=== PATIENT | female | born 1985 | race Caucasian/White ===

== ENCOUNTER 2023-07-10 17:41 | Outpatient (REF) | payer MEDICAID, SELFPAY ==
[2023-07-10 18:12] LABS: Appearance Urine Clear; Color Urine Yellow; Glucose Urine UA Negative (Negative); Leukocyte Esterase Urine Trace (Negative); Nitrite Urine Negative (Negative); Specific Gravity - Urine 1.015 (1.005-1.025); UMIC TRIGGER UACC YES; Urine Blood Negative (Negative); Urine Ketones Negative (Negative); Urine Protein Negative (Neg-Trace)
[2023-07-10 18:27] LABS: Bacteria Urine None Seen (None Seen); Hyaline Casts Urine 0-2 /LPF (0-2); RBC Urine 0-2 /HPF (0-2); WBC Urine 0-5 /HPF (0-5)
[2023-07-11 12:54] LABS: BV Int Neg Control Negative (Negative); BV Int Pos Control Positive (Positive)
== END 2023-07-10 17:42 | disposition home or self-care (01) ==
LOC: HO.HHCLNP 17:41
PROVIDERS: Visit Provider Emergency Medicine
DX: R30.0 Dysuria (principal)
CPT/HCPCS: 81001; 87480; 87491; 87510; 87591; 87660

== ENCOUNTER 2023-11-07 13:36 | Emergency (ER) | payer MEDICAID, SELFPAY ==
--- NOTE | ~2023-11-07 | CT_ITS ---
EXAMINATION: CT ANGIOGRAM OF THE CHEST WITH AND WITHOUT CONTRAST (CT PULMONARY ANGIOGRAM FOR PE) CLINICAL INFORMATION: Chest pain elevated d-dimer(338) COMPARISON: Chest radiograph done earlier the same day. TECHNIQUE: Prior to contrast administration, noncontrast localization images were obtained. Subsequently, multidetector volumetric imaging was performed from the thoracic inlet to below the diaphragms following the administration of 65 mL Omnipaque 350 intravenous contrast. No contrast reaction reported Sagittal, coronal, and MIP oblique sagittal reformatted images were obtained on the CT workstation, uploaded to PACS, and reviewed. This CT examination was performed using dose optimization techniques as appropriate, variously including the following: *Automated exposure control *Adjustment of mA and/or kV according to patient size (this includes techniques or standardized protocols for targeted exams where dose is matched to indication/reason for exam; i.e. extremities or head) *Use of iterative reconstruction technique Total exam dose-length product 302 mGy-cm FINDINGS: QUALITY OF STUDY/CONTRAST BOLUS: Satisfactory. PULMONARY ARTERIES: No pulmonary emboli. THORACIC AORTA: No aneurysm. LUNG: No focal consolidation, nodules or masses. PLEURA: No pleural effusion or pneumothorax. MEDIASTINUM: Normal heart size. No pericardial effusion. No hilar or mediastinal lymphadenopathy. No evidence of septal bowing or right heart strain. CORONARY ARTERY CALCIFICATION: None visualized on this study. CHEST WALL/AXILLA: No axillary or internal mammary lymphadenopathy. OSSEOUS STRUCTURES: No acute or suspicious osseous abnormality. 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 UPPER ABDOMEN: Unremarkable. No reflux of contrast into the hepatic veins to suggest elevated right heart pressures. CT/CT angio chest PE protocol IMPRESSION: 1. No CT angiographic evidence of acute pulmonary embolism. 2. No pulmonary nodule, mass, or airspace consolidation. VTE: negative.
--- NOTE | ~2023-11-07 | XR_ITS ---
EXAMINATION: XR CHEST 2 VIEW CLINICAL INFORMATION: Chest pain COMPARISON: 05/11/2017 TECHNIQUE: PA and lateral views of the chest obtained. FINDINGS: The lungs are clear. There are no pleural effusions. The cardiomediastinal silhouette is normal. XR/XR chest 2V IMPRESSION: No acute cardiopulmonary disease.
--- NOTE | 2023-11-07 13:39 | ECG_ITS ---
Test Reason : CHEST PAIN Blood Pressure : / mmHG Vent. Rate : 078 BPM Atrial Rate : 078 BPM P-R Int : 130 ms QRS Dur : 072 ms QT Int : 378 ms P-R-T Axes : 018 012 027 degrees QTc Int : 430 ms Normal sinus rhythm with sinus arrhythmia Normal ECG No previous ECGs available Referred By: Jacy Jordan Electronically Signed By:ELVER ASCENCIO MD
[2023-11-07 14:08] VITALS: BP 152/104; PULSE 69; RESP 19; TEMP 36.6; O2SAT 98; BMI 26.9
--- NOTE | 2023-11-07 14:08 | ED_ITS ---
HPI - Chest Pain General Chief Complaint: Chest Pain Stated Complaint: Chest Pain Since Last Night Anxiety Time Seen by Provider: 11/07/23 17:19 Source: patient and old records reviewed Mode of arrival: ambulatory Limitations: no limitations History of Present Illness ED Provider: YANET FLORENCE narrative: 37 yo female with PMH of thrombophilia, reactive airway disease, prior hep C and IVDA who presents with c/o multiple issues 1. L upper chest pain on and off x 1 week with hard firm area felt in upper left chest - no trauma, cough or fevers not on OCPs, no travel, dyspnea/procedures 2. yellow diarrhea started after going to [employer] - no abx use 3. L eye stye wants eye drops 4. thinks she has BV again wants treatment 5. R foot has white itchy rash noted but no redness, swelling after cutting her foot on [place] a week ago she denies IVDA she is worried she has in infection she wants eye drops and antibiotic for her body thinks she has a fungal rash she wants HIV test as well. MD complaint: chest pain Onset (ago): week(s) (1) Timing of current episode: episodic Prior episodes: Yes Onset: during rest Pain location: left chest Pain radiation: none Severity: moderate Quality: aching Relieving factors: nothing Exacerbating factors: palpation Context: recent illness Associated symptoms: other (diarrhea, rash, stye in eye, foot rash, BV) Treatment prior to arrival: none Related Data Home Medications ?Medication ?Instructions ?Recorded ?Confirmed albuterol sulfate 2.5 mg/3 mL 2.5 mg inhalation Q4H 07/31/21 07/31/21 (0.083 %) solution for nebulization albuterol sulfate 90 mcg/actuation 2 puff inhalation Q4-6H PRN 07/31/21 07/31/21 aerosol inhaler (ProAir HFA) Shortness Of Breath Or Wheezing docusate sodium 250 mg capsule 250 mg PO DAILY 07/31/21 07/31/21 ibuprofen 400 mg tablet 400 mg PO Q6H PRN Pain 07/31/21 07/31/21 lamotrigine 200 mg tablet 200 mg PO DAILY 07/31/21 07/31/21 lorazepam 1 mg tablet 1 mg PO BID PRN Anxiety 07/31/21 07/31/21 metronidazole 500 mg tablet 500 mg PO Q12H 07/31/21 07/31/21 prazosin 2 mg capsule 2 mg PO BEDTIME 07/31/21 07/31/21 valacyclovir 500 mg tablet 1,000 mg PO DAILY 07/31/21 07/31/21 (Valtrex) Previous Rx's ?Medication ?Instructions ?Recorded clindamycin phosphate 2 % vaginal 1 appful vaginal BEDTIME #40 grams 11/07/23 cream clotrimazole-betamethasone 1 1 appl topical DAILY 7 days #15 11/07/23 %-0.05 % topical cream grams erythromycin 5 mg/gram (0.5 %) eye 0.5 inch ophthalmic (eye) BID 5 11/07/23 ointment days #3.5 grams metronidazole 500 mg tablet 500 mg PO BID 7 days #14 tabs 11/07/23 Allergies Allergy/AdvReac Type Severity Reaction Status Date / Time amoxicillin [From AMOXIL] Allergy Unknown RASH Verified 11/07/23 14:11 levofloxacin [From LEVAQUIN] Allergy Unknown RASH/ITCHY Verified 11/07/23 14:11 THROAT metronidazole [From FLAGYL] Allergy Unknown N/V Verified 11/07/23 14:11 DIZZINESS H/A paroxetine Allergy Unknown Verified 11/07/23 14:11 Review of Systems 2 Review of Systems: Constitutional : No Fever, No Chills, No Fatigue ENT/Mouth : No sore throat, No Rhinorrhea, pos eye lesion Eyes: No Eye Pain, No Swelling, No Redness Cardiovascular : pos Chest Pain, No SOB, No Dyspnea on Exertion Respiratory : No Cough, No Sputum Gastrointestinal : No Nausea, No Vomiting, pos Diarrhea, No abdominal Pain Genitourinary : No Dysuria, No Urinary Frequency, No Hematuria, Musculoskeletal : No joint pain, No Myalgias, No Joint Swelling Skin : No Skin Lesions, pos rash Neuro : No Weakness, No Numbness, No Dizziness, no Headache Psych : No Anxiety/Panic, No Depression All other systems reviewed and are negative PMFSH Past Medical History Attestation statement: The following information was validated with the patient. Source: old records reviewed Medical History Hx of intravenous drug use in remission Herpes simplex virus infection Depression with anxiety Allergic sinusitis Morbid obesity Chronic hepatitis C without hepatic coma Thrombophilia IV drug abuse Hand edema Rash of face Surgical History Hx laparoscopic cholecystectomy Family History Family History (Updated 07/31/21 @ 15:05 by Christie Garcia CMA) Maternal Aunt Lupus Paternal Grandmother Ovarian cancer Social History Social History Household Members: Children Housing: House Are you a primary adult caregiver to a significant other at home: No Do you presently have visiting nurse or other home services: No Patient Tobacco Use Status: Current everyday Tobacco user Smoked in Last 30 Days: No Use of substances other than those prescribed or required for medical reasons: No Advance Directives: No Advance Directives Information Provided: No Patient : No service: No Current occupational status: unemployed Physical Exam 2 Vital Signs: Vital Signs: Last Vital Signs Temp 98.7 F 11/07/23 17:23 Pulse 53 11/07/23 23:15 Resp 18 11/07/23 23:15 BP 91/47 L 11/07/23 23:15 Pulse Ox 93 11/07/23 23:15 O2 Del Method Room Air 11/07/23 23:15 BMI result Body Mass Index 26.9 Appearance: Alert. Oriented X3. No acute distress. Eyes: Pupils equal, round and reactive to light. L upper eyelid very small stye noted upper lid no signs of infection ENT: Pharynx normal. Neck: Normal inspection. Neck supple. CVS: Normal heart rate and rhythm. Pulses normal. L upper chest I do not appreciate a mass on exam Respiratory: No respiratory distress. Breath sounds normal. Abdomen: Soft and non-tender. Skin: Skin warm and dry. Normal skin color. Normal skin turgor. R foot there is no open wound or healing laceration area appears dry Extremities: No lower extremity edema. No calf ttp Neuro: Oriented X 3. No motor deficit. No sensory deficit. Course Course Course Narrative: This is an RME performed by Kentrell Jordan CNP: Additional HPI, ROS, PE not included below will be deferred to primary provider. Patient is a 37-year-old female with reported past medical history of thrombophilia who presents to the emergency department for evaluation of Chest pain intermittently over the past week, awaking from her sleep with palpitations, a palpable lump to left anterior chest, left foot rash, diarrhea requesting stool sample, L eye lump. Reports all these symptoms began after recently being [place] the beach. Plan: Labs, urinalysis, EKG, CXR Reevaluation(s) Reevaluation #1: ddimer elevated CTA ordered Reevaluation #2: difficult stick will allow one IV attempt with US as she had difficult experience last time she states her R arm has scar from prior attempt in past as the person performing it used a long needle and she thinks he was up to something. RN has agreed to attempt IV with US and patient agrees. She now is concerned about lymphoma as her aunt had lymphoma Reevaluation #3: stool is very formed cannot run c diff per lab Additional Reevaluation(s): BP slightly soft but eating and drinking up and walking no symptoms Medications Administered Discontinued Medications Generic Name Dose Route Start Last Admin Trade Name Freq PRN Reason Stop Dose Admin Erythromycin 1 cm 11/07/23 17:47 11/07/23 18:42 Erythromycin Base 0.5% Oph Oin 1 Gm Tube EYE-LEFT 11/07/23 17:48 1 cm ONCE ONE Administration Sodium Chloride 1,000 mls @ 999 mls/hr 11/07/23 18:22 11/07/23 22:22 Ns IV 11/07/23 19:22 Infused .Q1H1M ONE Infusion Iohexol 65 ml 11/07/23 22:41 11/07/23 22:41 Iohexol 350 Mg/Ml 100 Ml Infus..Btl IV 11/07/23 22:42 65 ml ONCE ONE Administration Medical Decision Making Medical Decision Making MDM Narrative: 37 yo female with PMH of thrombophilia, reactive airway disease who presents with c/o 1. chest lesion I cannot appreciate mass would send out with breast US with PCP if negative ddimer and trop 2. R foot rash I do not appreciate infection she states it is itchy will order hydrocortisone and clotrimazole 3. diarrhea no wbc count eating and drinking stool studies ordered, not dehydrated and no WBC count 4. states she is dehydrated but UA normal spec grav and normal BUN/Cr 5. wants treatment for BV will order clindamycin vaginal get - defer HIV testing to PCP Differential Diagnosis Differential Diagnoses: The differential diagnosis associated with the presentation includes atypical chest pain VTE given hx ddimer ordered stye diarrhea Admission/Observation Consideration of admission/observation: Escalation of care including admission/observation considered work up negative stable for DC Lab Data MDM Lab Attestation statement: I reviewed the patient's lab results. 11/07/23 14:33 11/07/23 14:33 Labs: Lab Results 11/07/23 11/07/23 11/07/23 Range/Units 14:33 14:37 22:17 WBC 6.6 (4.8-10.8) X10*3/uL RBC 4.15 L (4.20-5.50) X10*6/uL Hgb 13.3 (12.0-16.0) g/dl Hct 38.9 (37.0-47.0) % MCV 93.7 (80.0-98.0) fL MCH 32.0 (27.0-33.0) pg MCHC 34.2 (31.0-35.0) g/dl RDW 12.9 (11.0-16.0) % Plt Count 195 (160-400) X10*3/uL MPV 12.1 (9.4-12.3) fL Immature Gran % (Auto) 0.2 (0.0-0.4) % Neut % (Auto) 60.6 (45-73) % Lymph % (Auto) 24.2 (20-40) % Vermillion % (Auto) 9.8 (2-11) % Eos % (Auto) 4.1 H (0-4) % Baso % (Auto) 1.1 (0-2) % Lymph # (Auto) 1.6 (1.2-4.9) X10*3/uL [place] # (Auto) 0.7 (0.1-1.2) X10*3/uL Eos # (Auto) 0.3 (0.0-0.4) X10*3/uL Baso # (Auto) 0.1 (0.0-0.2) X10*3/uL Abs Immat Gran (auto) 0.01 (0.00-0.03) X10*3/uL Absolute Neuts (auto) 4.0 (2.0-8.3) x10*3/uL Absolute Nucleated RBC 0.000 (0.0-0.012) X10*3/uL Nucleated RBC % (auto) 0.0 (0.0-0.2) /100WBC PT 12.3 (11.1-13.3) SEC INR 1.0 (0.9-1.1) D-Dimer High Sensitivty 338 NG/ML Sodium 141 (135-145) mmol/L Potassium 3.6 (3.3-5.1) mmol/L Chloride 109 H (96-108) mmol/L Carbon Dioxide 20 L (22-29) mmol/L Anion Gap 16 (12-20) BUN 6 L (9-16) mg/dL Creatinine 0.72 (0.5-1.4) mg/dL Estim Creat Clear Calc 115.1 Estimated GFR > 60 Random Glucose 104 (60-115) mg/dL Calcium 9.5 (8.4-10.2) mg/dL Magnesium 2.0 (1.6-2.6) mg/dL Total Bilirubin 0.5 (0.0-1.0) mg/dL AST 12 (5-31) U/L ALT 11 (0-31) U/L Alkaline Phosphatase 69 (39-117) U/L Troponin I High Sens < 2.7 (<3.5-17.0) ng/L Total Protein 6.7 (6.5-8.0) g/dL Albumin 4.1 (3.5-5.0) g/dL Urine Color Yellow Urine Appearance Clear Urine pH 7.0 (5.0-9.0) Ur Specific Braxton 1.010 (1.005-1.025) Urine Protein Negative (Neg-Trace) mg/dL Urine Glucose (UA) Negative (Negative) mg/dL Urine Ketones Negative (Negative) mg/dL Urine Blood Negative (Negative) Urine Nitrite Negative (Negative) Ur Leukocyte Esterase Small (1+) H (Negative) Urine RBC 0-2 (0-2) /HPF Urine WBC 0-5 (0-5) /HPF Ur Squamous Epith Cells 0-2 (0-2) /HPF Urine Bacteria None Seen (None Seen) Hyaline Casts 0-2 (0-2) /LPF Urine Test NEGATIVE (NEGATIVE) Urine Opiates Screen Not Detected (Not Detect) Ur Buprenorphine Scrn Not Detected (Not Detect) ng/mL Ur Oxycodone Screen Not Detected (Not Detect) ng/mL Urine Methadone Screen Not Detected (Not Detect) ng/mL Urine Fentanyl Screen Not Detected (Not Detect) Ur Barbiturates Screen Not Detected (Not Detect) Ur Phencyclidine Scrn Not Detected (Not Detect) Ur Amphetamines Screen Not Detected (Not Detect) U Benzodiazepines Scrn Not Detected (Not Detect) Urine Cocaine Screen Not Detected (Not Detect) U Marijuana (THC) Screen Not Detected (Not Detect) C. difficile Tox B Gene Cancelled Influenza Type A (PCR) NEGATIVE (Negative) Influenza Type B (PCR) NEGATIVE (Negative) RSV RNA Qual (PCR) NEGATIVE (Negative) SARS-CoV-2 RNA (RT-PCR) NEGATIVE (Negative) Independent Interpretation I performed an independent interpretation of an: EKG, Plain X-Ray (normal ) and CT Scan (no PE or mass seen) Interpretation: Rate: 78 Rhythm: NSR Marshall: left Normal P waves. Normal SARIKA. Normal QRS complex. ST T wave : no ASHLEE, inverted t wave V1 qTC: 430 prior studies: no acute ischemia The study has been interpreted contemporaneously by me. . Radiology Impression Discussion of test interpretation with radiology: I have reviewed the radiologist's reading. External Record Review External record reviewed: Inpatient record and Outpatient record Prescription Management I considered prescription management with: Other Discharge Plan Discharge Clinical Impression: Atypical chest pain, Rash and nonspecific skin eruption, Bacterial vaginosis Hordeolum Qualifiers: Hordeolum type: externum Laterality: left Eyelid: upper Qualified Code(s): H 00.014 - Hordeolum externum left upper eyelid Patient Disposition: Home, Self-Care Instructions: Chest Pain (ED), Bacterial Vaginosis (ED), Stye (ED), Acute Rash (ED) Additional Instructions: tests for heart and blood clot negative chest xray normal no signs of dehydration in urine or blood work return for any worsening symptoms or concerns [facility] do HIV testing if you do not want to go to your family doctor CT Scan results FINDINGS: QUALITY OF STUDY/CONTRAST BOLUS: Satisfactory. PULMONARY ARTERIES: No pulmonary emboli. THORACIC AORTA: No aneurysm. LUNG: No focal consolidation, nodules or masses. PLEURA: No pleural effusion or pneumothorax. MEDIASTINUM: Normal heart size. No pericardial effusion. No hilar or mediastinal lymphadenopathy. No evidence of septal bowing or right heart strain. CORONARY ARTERY CALCIFICATION: None visualized on this study. CHEST WALL/AXILLA: No axillary or internal mammary lymphadenopathy. OSSEOUS STRUCTURES: No acute or suspicious osseous abnormality. 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 UPPER ABDOMEN: Unremarkable. No reflux of contrast into the hepatic veins to suggest elevated right heart pressures. CT/CT angio chest PE protocol IMPRESSION: 1. No CT angiographic evidence of acute pulmonary embolism. 2. No pulmonary nodule, mass, or airspace consolidation. Prescriptions: New erythromycin 5 mg/gram (0.5 %) ointment 0.5 inch ophthalmic (eye) BID 5 Days Qty: 3.5 0RF clindamycin phosphate 2 % cream 1 appful vaginal BEDTIME Qty: 40 0RF Rx Instructions: for 5 days clotrimazole-betamethasone 1-0.05 % cream 1 appl topical DAILY 7 Days Qty: 15 0RF Rx Instructions: foot metronidazole 500 mg tablet 500 mg PO BID 7 Days Qty: 14 0RF No Action albuterol sulfate 2.5 mg /3 mL (0.083 %) Solution For Nebulization 2.5 mg INHALATION Q4H metronidazole 500 mg Tablet 500 mg PO Q12H valacyclovir [Valtrex] 500 mg Tablet 1,000 mg PO DAILY ibuprofen 400 mg Tablet 400 mg PO Q6H PRN (Reason: Pain) lorazepam 1 mg Tablet 1 mg PO BID PRN (Reason: Anxiety) albuterol sulfate [ProAir HFA] 90 mcg/actuation Hfa Aerosol Inhaler 2 puff INHALATION Q4-6H PRN (Reason: Shortness Of Breath Or Wheezing) docusate sodium 250 mg Capsule 250 mg PO DAILY prazosin 2 mg Capsule 2 mg PO BEDTIME lamotrigine 200 mg tablet 200 mg PO DAILY Print Language: Slovenian
[2023-11-07 14:39] LABS: Basophils Absolute Auto 0.1 X10*3/uL (0.0-0.2); Basophils Percent Auto 1.1 % (0-2); Eosinophils Absolute Auto 0.3 X10*3/uL (0.0-0.4); Eosinophils Percent Auto 4.1 % (0-4); Hematocrit 38.9 % (37.0-47.0); Hemoglobin 13.3 g/dl (12.0-16.0); Imm Gran Abs Auto 0.01 X10*3/uL (0.00-0.03); Imm Gran Pct Auto 0.2 % (0.0-0.4); Lymphocytes Absolute Auto 1.6 X10*3/uL (1.2-4.9); Lymphocytes Percent Auto 24.2 % (20-40); MANUAL DIFF FLAG NO; Mean Corpuscular HGB Conc 34.2 g/dl (31.0-35.0); Mean Corpuscular Volume 93.7 fL (80.0-98.0); Mean Platelet Volume 12.1 fL (9.4-12.3); Monocytes Absolute Auto 0.7 X10*3/uL (0.1-1.2); Monocytes Percent Auto 9.8 % (2-11); Neutrophils Percent Auto 60.6 % (45-73); Platelet Count 195 X10*3/uL (160-400); Red Blood Count 4.15 X10*6/uL (4.20-5.50); Red Cell Distribution Width 12.9 % (11.0-16.0); White Blood Count 6.6 X10*3/uL (4.8-10.8)
[2023-11-07 14:45] LABS: Appearance Urine Clear; Color Urine Yellow; Glucose Urine UA Negative (Negative); Leukocyte Esterase Urine Small (1+) (Negative); Nitrite Urine Negative (Negative); UMIC TRIGGER UACC YES; Urine Blood Negative (Negative); Urine Ketones Negative (Negative); Urine Protein Negative (Neg-Trace)
[2023-11-07 14:47] LABS: Prothrombin Time 12.3 SEC (11.1-13.3)
[2023-11-07 14:58] LABS: Bacteria Urine None Seen (None Seen); Hyaline Casts Urine 0-2 /LPF (0-2); RBC Urine 0-2 /HPF (0-2); Squamous Epithelial Cell Urine 0-2 /HPF (0-2); UACC Culture Trigger YES; WBC Urine 0-5 /HPF (0-5)
[2023-11-07 15:17] LABS: Influenza A PCR NEGATIVE (Negative); Influenza B PCR NEGATIVE (Negative); Resp Syncy Virus RNA Qual PCR NEGATIVE (Negative); SARS COV2 PCR INHOUSE NEGATIVE (Negative)
[2023-11-07 15:21] LABS: Anion Gap 16 (12-20); Blood Urea Nitrogen 6 mg/dL (9-16); Carbon Dioxide 20 mmol/L (22-29); Chloride 109 mmol/L (96-108); Potassium 3.6 mmol/L (3.3-5.1); Sodium 141 mmol/L (135-145)
[2023-11-07 15:22] LABS: Alanine Aminotransferase 11 U/L (0-31); Albumin Level 4.1 g/dL (3.5-5.0); Alkaline Phosphatase 69 U/L (39-117); Aspartate Amino Transferase 12 U/L (5-31); Bilirubin Total 0.5 mg/dL (0.0-1.0); Calcium 9.5 mg/dL (8.4-10.2); Creatinine Clr Calc Pharmacy 115.1; Estimated Glomerular Filt Rate > 60; Glucose Random 104 mg/dL (60-115); Total Protein 6.7 g/dL (6.5-8.0)
[2023-11-07 15:24] LABS: Troponin-I High Sensitivity < 2.7 ng/L (<3.5-17.0)
[2023-11-07 17:23] VITALS: BP 96/59; PULSE 76; RESP 20; TEMP 37.1; O2SAT 99
--- NOTE | 2023-11-07 17:38 | PC.NURSE ---
patient presents from triage, ambulatory with steady gait with multiple medical complaints, patient states she has a blood clotting disorder and for the last few weeks she has been experiencing pain in her chest, that worsens when she presses on it, patient states she feels a small lump on her chest and it is more painful when palpated. patient also states she recently went to the beach and cut her foot and thinks she has a parasitic infection in her foot and its causing her to have also a rash on her left eye, no rash appreciated by this RN. patient states it feels like there is something wiggling in my skin . patient also states she thinks she may have food poisoning due to some yellow diarrhea she has been having for the last few days. patient is on court monitor in room, is alert and oriented at this time and in no apparent distress. endorsing some intermittent discomfort in her chest, but other than that offering no other complaints. EKG and labs completed in triage. awaiting provider Cody
[2023-11-07 18:06] LABS: Urine Pregnancy NEGATIVE (NEGATIVE)
[2023-11-07 18:07] LABS: UPreg QC Valid YES
[2023-11-07 18:18] LABS: D Dimer High Sensitivity 338 NG/ML
[2023-11-07] MEDS: Erythromycin Base 0.5% Oph Oin 1 GM TUBE 1 CM EYE-LEFT (18:42)
[2023-11-07] MEDS: 0.9 % Sodium Chloride 1,000 ML 999 ML IV (19:56)
[2023-11-07 21:09] LABS: Amphetamine Screen Urine Not Detected (Not Detect); Barbiturates, Urine Not Detected (Not Detect); Benzodiazepines Screen Urine Not Detected (Not Detect); Buprenorphine Scr Not Detected (Not Detect); Cannabinoid Screen Urine Not Detected (Not Detect); Cocaine Screen Urine Not Detected (Not Detect); Fentanyl, urine Not Detected (Not Detect); Methadone Screen, Urine Not Detected (Not Detect); Opiate Screen Urine Not Detected (Not Detect); Oxycodone Screen Urine Not Detected (Not Detect); Phencyclidine Screen Urine Not Detected (Not Detect)
--- NOTE | 2023-11-07 22:28 | MHC.EDTECH ---
patient refusing vitals at this time . States that her arm is too sore from IV attempts.
[2023-11-07] MEDS: iohexoL 350 MG/ML 100 ML INFUS..BTL 65 ML IV (22:41)
[2023-11-07 23:15] VITALS: BP 91/47; PULSE 53; RESP 18; O2SAT 93
[2023-11-07 23:23] VITALS: BP 102/55
[2023-11-07 23:39] VITALS: BP 102/55; PULSE 72; RESP 18; TEMP 37.2; O2SAT 96
== END 2023-11-07 23:40 | disposition home or self-care (01) ==
PROVIDERS: Nurse Practitioner Family; Emergency Provider Emergency Medicine
DX: R07.89 Other chest pain (principal); N76.0 Acute vaginitis; H00.014 Hordeolum externum left upper eyelid; R21 Rash and other nonspecific skin eruption; Z03.818 Encounter for observation for suspected exposure to other biological agents ruled out; J45.909 Unspecified asthma, uncomplicated; F17.200 Nicotine dependence, unspecified, uncomplicated; F19.10 Other psychoactive substance abuse, uncomplicated; Z79.899 Other long term (current) drug therapy
CPT/HCPCS: 0241U; 71046; 71275; 80053; 80307; 81001; 81025; 83735; 84484; 85025; 85379; 85610; 87086; 93005; 96360; 96361; 99284; 99285; Q9967

== ENCOUNTER → 2023-11-07 13:39 | Outpatient (BNV) | payer MEDICAID, SELFPAY | PROVIDERS: Emergency Provider Emergency Medicine; Visit Provider Internal Medicine Cardiovascular Disease | DX: R94.31 Abnormal electrocardiogram [ECG] [EKG] (principal) | CPT/HCPCS: 93010 ==